=== PATIENT | female | born 1955 | race Caucasian/White ===

== ENCOUNTER 2017-09-03 16:15 | Emergency (ER) | payer OTHER ==
[~2017-09-03] VITALS: Ht 167.6 cm; Wt 90.7 kg
[~2017-09-03 16:15] MED LIST: ACET500 PO; ALBU90OI INH; ASPI325 PO; Amoxicillin500 MG PO; Armour Thyroid120 MG PO; Biotin800 MCG PO; CALCA500CH PO; Cinnamon500 MG PO; Cipro500 MG PO; FISH1000; GABA100 PO; GUAI120S1 PO; HYDACE5 PO; Hair, Skin & N1 EACH PO; IBUP800 PO; MONDOXYNE NL100 MG PO; Metamucil Plus1 EACH PO; Multiple Vitam1 EAC1 PO; NAPR500 PO; OMEP20ER PO; OXYACE5T PO; Pyridium200 MG PO; ROXICODONE5 MG PO; Sudogest60 MG PO; THYR60 PO; VITAMIN D35000 UNIT PO; Vitamin D400 UNI1 PO
[2017-09-03] MEDS ORDERED: PRED20 PO (17:38)
[2017-09-03] MEDS ORDERED: ALBU90OI INH (17:38)
[2017-09-03] MEDS ORDERED: BENZ100A PO (17:38)
[2017-09-03] MEDS ORDERED: Cheratussin AC118 ML PO (17:38)
[2017-09-03] MEDS ORDERED: SPACE CHAMBER1 EACH INH (17:38)
== END 2017-09-03 17:45 | disposition home or self-care (01) ==
LOC: ER 16:15
DX: R05 Cough (principal); R09.81 Nasal congestion; Z88.8 Allergy status to other drugs, medicaments and biological substances; Z79.899 Other long term (current) drug therapy; Z79.82 Long term (current) use of aspirin; Z79.51 Long term (current) use of inhaled steroids; Z87.891 Personal history of nicotine dependence
CPT/HCPCS: 71046; 94640; 99284

== ENCOUNTER 2018-10-30 19:40 | Emergency (ER) | payer OTHER ==
[~2018-10-30] VITALS: Ht 165.1 cm; Wt 90.7 kg
[~2018-10-30 19:40] MED LIST changes: +BENZ100A PO; +Cheratussin AC118 ML PO; +PRED20 PO; +SPACE CHAMBER1 EACH INH
[2018-10-30 20:26] LABS: Source, Urine Clean Catch
[2018-10-30 20:32] LABS: Bilirubin, Urine Neg (Neg); Blood, Urine 1+ (Neg); Glucose Qualitative, Urine Neg (Neg); Ketones, Urine Neg (Neg); Leukocyte Esterase, Urine 1+ (Neg); Nitrite, Urine Neg (Neg); Protein, Urine Neg (Neg); Specific Gravity, Urine 1.015 (1.003-1.022); Urobilinogen, Urine NORM (Normal); pH, Urine 6.5 (5.0-8.0)
[2018-10-30 20:38] LABS: Appearance, Urine Clear (Clear); Color, Urine Yellow (P-Yellow)
[2018-10-30 20:39] LABS: Amorphous Mod (0-Heavy); Bacteria Mod /hpf; Mucus Light (0-Heavy); Red Blood Cells, Urine 0-2 /hpf (0-2); Squamous Epithelial Cells Few /hpf (Few)
[2018-10-30] MEDS ORDERED: CEPH500 PO (20:53)
== END 2018-10-30 21:02 | disposition home or self-care (01) ==
LOC: ER 19:40
PROVIDERS: Emergency Medicine
DX: N39.0 Urinary tract infection, site not specified (principal); Z88.8 Allergy status to other drugs, medicaments and biological substances; Z88.1 Allergy status to other antibiotic agents; Z79.899 Other long term (current) drug therapy; Z79.52 Long term (current) use of systemic steroids; E03.9 Hypothyroidism, unspecified; Z87.891 Personal history of nicotine dependence
CPT/HCPCS: 81001; 87086; 99283

== ENCOUNTER 2019-06-15 13:29 | Observation (INO) | payer OTHER ==
[~2019-06-15] VITALS: Ht 167.6 cm; Wt 85.7 kg
[~2019-06-15 13:29] MED LIST changes: +CEPH500 PO
[2019-06-15 14:07] LABS: BASOPHILS ABSOLUTE AUTO 0.06 K/mm3 (0.00-0.23); BASOPHILS PERCENT AUTO 1 % (0-2); EOSINOPHILS ABSOLUTE AUTO 0.26 K/mm3 (0.00-0.68); EOSINOPHILS PERCENT AUTO 3 % (0-6); Hematocrit 42.8 % (33.0-51.0); Hemoglobin 14.2 g/dL (11.5-16.0); IMMATURE GRAN ABSOLUTE AUTO 0.02 K/mm3 (0.00-0.10); IMMATURE GRAN PERCENT AUTO 0 % (0-1); LYMPHOCYTES ABSOLUTE AUTO 2.31 K/mm3 (0.84-5.20); LYMPHOCYTES PERCENT AUTO 24 % (21-46); MONOCYTES ABSOLUTE AUTO 0.63 K/mm3 (0.16-1.47); MONOCYTES PERCENT AUTO 6 % (4-13); Mean Corpuscular HGB 30.9 pg (26.0-34.0); Mean Corpuscular HGB Conc 33.2 g/dL (31.5-36.5); Mean Corpuscular Volume 93 fL (80-100); Mean Platelet Volume 10.3 fL (9.1-12.4); NEUTROPHILS ABSOLUTE AUTO 6.53 K/mm3 (1.96-9.15); NEUTROPHILS PERCENT AUTO 67 % (41-73); Platelet Count 255 K/mm3 (150-400); RDW Coefficient Variation 12.3 % (11.7-14.2); RDW Standard Deviation 42.4 fL (35.1-46.3); White Blood Cell Count 9.81 K/mm3 (4.00-11.30)
[2019-06-15 14:32] LABS: Alanine Aminotransfer (ALT/SGP 39 U/L (12-78); Albumin, Blood 4.1 g/dL (3.4-5.0); Albumin/Globulin Ratio 1.1 (0.8-1.8); Alk Phos 130 U/L (50-136); Anion Gap 7 mmol/L (6-16); Aspartate Aminotrans (AST/SGOT 30 U/L (12-37); Bilirubin, Total 0.4 mg/dL (0.1-1.0); Blood Urea Nitrogen 19 mg/dL (8-24); Bun/Creatinine Ratio 25.9 (12.0-20.0); CO2, Blood 25 mmol/L (21-32); Chloride, Blood 107 mmol/L (98-108); Creatinine, Blood 0.73 mg/dL (0.40-1.00); Globulin, Blood 3.6 g/dL (2.2-4.0); Glomerular Filtration Rate >60 (60-); Glucose, Blood 101 mg/dL (70-99); Sodium, Blood 139 mmol/L (136-145); Total Protein, Blood 7.7 g/dL (6.4-8.2); Troponin I <0.015 ng/mL (0.000-0.040)
[2019-06-15 15:01] LABS: Source, Urine Clean Catch
[2019-06-15 15:07] LABS: Appearance, Urine Clear (Clear); Bilirubin, Urine Neg (Neg); Blood, Urine 1+ (Neg); Color, Urine Yellow (P-Yellow); Glucose Qualitative, Urine Neg (Neg); Ketones, Urine Neg (Neg); Leukocyte Esterase, Urine Neg (Neg); Nitrite, Urine Neg (Neg); Protein, Urine Neg (Neg); Urobilinogen, Urine NORM (Normal); pH, Urine 6.5 (5.0-8.0)
[2019-06-15 15:12] LABS: Bacteria Few /hpf; Red Blood Cells, Urine 0-2 /hpf (0-2); Squamous Epithelial Cells Rare /hpf (Few); White Blood Cells, Urine Not Seen /hpf (0-5)
[2019-06-15] MEDS ORDERED: IBUPROFEN IB200 MG PO (17:58)
[2019-06-16 02:01] LABS: BASOPHILS ABSOLUTE AUTO 0.09 K/mm3 (0.00-0.23); BASOPHILS PERCENT AUTO 1 % (0-2); EOSINOPHILS ABSOLUTE AUTO 0.35 K/mm3 (0.00-0.68); EOSINOPHILS PERCENT AUTO 4 % (0-6); Hematocrit 41.3 % (33.0-51.0); Hemoglobin 13.4 g/dL (11.5-16.0); IMMATURE GRAN ABSOLUTE AUTO 0.02 K/mm3 (0.00-0.10); IMMATURE GRAN PERCENT AUTO 0 % (0-1); LYMPHOCYTES ABSOLUTE AUTO 2.73 K/mm3 (0.84-5.20); LYMPHOCYTES PERCENT AUTO 29 % (21-46); MONOCYTES ABSOLUTE AUTO 0.64 K/mm3 (0.16-1.47); MONOCYTES PERCENT AUTO 7 % (4-13); Mean Corpuscular HGB 30.7 pg (26.0-34.0); Mean Corpuscular HGB Conc 32.4 g/dL (31.5-36.5); Mean Corpuscular Volume 95 fL (80-100); Mean Platelet Volume 10.2 fL (9.1-12.4); NEUTROPHILS ABSOLUTE AUTO 5.58 K/mm3 (1.96-9.15); NEUTROPHILS PERCENT AUTO 59 % (41-73); Platelet Count 245 K/mm3 (150-400); RDW Coefficient Variation 12.4 % (11.7-14.2); RDW Standard Deviation 43.3 fL (35.1-46.3); Red Blood Cell Count 4.37 M/mm3 (3.80-5.20); White Blood Cell Count 9.41 K/mm3 (4.00-11.30)
[2019-06-16 02:44] LABS: Anion Gap 6 mmol/L (6-16); Blood Urea Nitrogen 19 mg/dL (8-24); CHOL/HDL RATIO 4.8; CO2, Blood 27 mmol/L (21-32); Chloride, Blood 108 mmol/L (98-108); Cholesterol 194 mg/dL (50-200); Creatinine, Blood 0.83 mg/dL (0.40-1.00); Free Thyroxine 0.62 ng/dL (0.70-1.60); Glomerular Filtration Rate >60 (60-); Glucose, Blood 113 mg/dL (70-99); HDL Cholesterol 40 mg/dL (>39); Low Density Lipoprotein Chol 118 mg/dL (0-110); Potassium, Blood 4.6 mmol/L (3.5-5.5); Sodium, Blood 141 mmol/L (136-145); Triglycerides 180 mg/dL (30-160); Very Low Density Lipoprot Chol 36 mg/dL (6-32)
--- NOTE | 2019-06-16 04:45 | NUR ---
SHIFT SUMMARY PT NEW ADMIT SHORTLY BEFORE SHIFT CHANGE ON DAY SHIFT. UPON COMING ON SHIFT PT WAS REPORTING INCREASED MIDSTERNAL PAIN. PT HAD JUST FINISHED EATING A FAST FOOD SANDWICH. TELEMETRY READING SR W/ OCCASSIONAL PVC'S AT 83. TROPONIN RECHECKED AND CONTINUED TO BE NEGATIVE. NEW ORDER TO START PEPCID AND METOPROLOL THIS EVENING. BOTH STARTED. ALSO MEDICATED PT W/ 650 MG TYLENOL. SHORTLY AFTER PT REPORTED RELIEF. NEW ORDER FOR MELATONIN PER PT REQUEST EFFECTIVE. PT SLEPT WELL THROUGH MOST OF THE NIGHT. VITAL SIGNS WERE STABLE. EXPECTING PT TO DISCHARGE TODAY. WILL CONTINUE TO MONITOR AND REPORT TO DAY RN.
[2019-06-16] MEDS ORDERED: ACET325 PO (11:08)
[2019-06-16] MEDS ORDERED: THYR60 (11:08)
[2019-06-16] MEDS ORDERED: ASPI81CH PO (11:09)
[2019-06-16] MEDS ORDERED: ATOR20 PO (11:10)
[2019-06-16] MEDS ORDERED: MELATONIN5 M1 PO (11:11)
[2019-06-16] MEDS ORDERED: FAMO20 PO (11:11)
[2019-06-16] MEDS ORDERED: METO25 PO (11:29)
--- NOTE | 2019-06-16 13:12 | NUR ---
PT DISCHARGED FROM THE UNIT. TO DRIVE HOME. DISCHARGE INSTRUCTIONS REVIEWED. NO IV ACCESS. LEFT UNIT VIA WHEELCHAIR AT 1200.
== END 2019-06-16 12:03 | disposition home or self-care (01) ==
LOC: ER 13:29 → MEDS 13:30 → ENPENDDIS 06-16 10:36 → MEDS 06-16 12:03
PROVIDERS: Emergency Medicine; Physician Assistant; ADMIT Hospitalist
DX: R07.89 Other chest pain (principal); E78.5 Hyperlipidemia, unspecified; K21.9 Gastro-esophageal reflux disease without esophagitis; M19.90 Unspecified osteoarthritis, unspecified site; G47.00 Insomnia, unspecified; E03.9 Hypothyroidism, unspecified; I10 Essential (primary) hypertension; Z79.899 Other long term (current) drug therapy
CPT/HCPCS: 36415; 71046; 80048; 80053; 80061; 81001; 83880; 84439; 84443; 84484; 85025; 93005; 93010; 96372; 99285-25; A9270; A9270-GY; G0378; J1650

== ENCOUNTER 2020-01-12 22:10 | Emergency (ER) | payer OTHER ==
[~2020-01-12] VITALS: Ht 167.6 cm; Wt 88.5 kg
[~2020-01-12 22:10] MED LIST changes: +ACET325 PO; +ASPI81CH PO; +ATOR20 PO; +FAMO20 PO; +IBUPROFEN IB200 MG PO; +MELATONIN5 M1 PO; +METO25 PO; +THYR60
[2020-01-12] MEDS ORDERED: Nitrostat0.3 MG SL (22:41)
[2020-01-12 23:03] LABS: BASOPHILS ABSOLUTE AUTO 0.09 K/mm3 (0.00-0.23); BASOPHILS PERCENT AUTO 1 % (0-2); EOSINOPHILS ABSOLUTE AUTO 0.35 K/mm3 (0.00-0.68); EOSINOPHILS PERCENT AUTO 4 % (0-6); Hematocrit 40.6 % (33.0-51.0); Hemoglobin 13.1 g/dL (11.5-16.0); IMMATURE GRAN ABSOLUTE AUTO 0.01 K/mm3 (0.00-0.10); IMMATURE GRAN PERCENT AUTO 0 % (0-1); LYMPHOCYTES PERCENT AUTO 28 % (21-46); MONOCYTES ABSOLUTE AUTO 0.62 K/mm3 (0.16-1.47); MONOCYTES PERCENT AUTO 7 % (4-13); Mean Corpuscular HGB 30.5 pg (26.0-34.0); Mean Corpuscular HGB Conc 32.3 g/dL (31.5-36.5); Mean Corpuscular Volume 95 fL (80-100); Mean Platelet Volume 10.5 fL (9.1-12.4); NEUTROPHILS ABSOLUTE AUTO 5.74 K/mm3 (1.96-9.15); NEUTROPHILS PERCENT AUTO 60 % (41-73); Platelet Count 224 K/mm3 (150-400); RDW Coefficient Variation 12.8 % (11.7-14.2); RDW Standard Deviation 44.2 fL (35.1-46.3); Red Blood Cell Count 4.29 M/mm3 (3.80-5.20); White Blood Cell Count 9.51 K/mm3 (4.00-11.30)
[2020-01-12 23:17] LABS: Alanine Aminotransfer (ALT/SGP 37 U/L (12-78); Albumin, Blood 3.7 g/dL (3.4-5.0); Albumin/Globulin Ratio 1.1 (0.8-1.8); Alk Phos 106 U/L (50-136); Anion Gap 3 mmol/L (6-16); Aspartate Aminotrans (AST/SGOT 24 U/L (12-37); Bilirubin, Total 0.2 mg/dL (0.1-1.0); Blood Urea Nitrogen 28 mg/dL (8-24); Bun/Creatinine Ratio 26.7 (12.0-20.0); CO2, Blood 29 mmol/L (21-32); Calcium, Blood 9.4 mg/dL (8.5-10.1); Chloride, Blood 111 mmol/L (98-108); Creatinine, Blood 1.05 mg/dL (0.40-1.00); Globulin, Blood 3.4 g/dL (2.2-4.0); Glomerular Filtration Rate 56 (60-); Glucose, Blood 130 mg/dL (70-99); Potassium, Blood 4.1 mmol/L (3.5-5.5); Sodium, Blood 143 mmol/L (136-145); Total Protein, Blood 7.1 g/dL (6.4-8.2); Troponin I <0.015 ng/mL (0.000-0.040)
== END 2020-01-13 00:33 | disposition home or self-care (01) ==
LOC: ER 22:10
PROVIDERS: Emergency Medicine
DX: R07.9 Chest pain, unspecified (principal); R05 Cough; Z88.8 Allergy status to other drugs, medicaments and biological substances; Z88.6 Allergy status to analgesic agent; Z79.899 Other long term (current) drug therapy; Z87.891 Personal history of nicotine dependence
CPT/HCPCS: 36415; 71046; 80053; 84484; 85025; 93005; 93010; 96374; 96375; 99285-25; J2270; J2405

== ENCOUNTER 2020-02-10 06:31 | Day surgery (SDC) | payer OTHER ==
[~2020-02-10] VITALS: Ht 165.1 cm; Wt 96.0 kg
[~2020-02-10 06:31] MED LIST changes: +BACL10 PO; +BUSP5 PO; +NAPR220 PO; +Nitrostat0.3 MG SL
[2020-02-10 07:44] LABS: BASOPHILS ABSOLUTE AUTO 0.08 K/mm3 (0.00-0.23); BASOPHILS PERCENT AUTO 1 % (0-2); EOSINOPHILS ABSOLUTE AUTO 0.29 K/mm3 (0.00-0.68); EOSINOPHILS PERCENT AUTO 3 % (0-6); Hematocrit 41.9 % (33.0-51.0); Hemoglobin 13.6 g/dL (11.5-16.0); IMMATURE GRAN ABSOLUTE AUTO 0.02 K/mm3 (0.00-0.10); IMMATURE GRAN PERCENT AUTO 0 % (0-1); LYMPHOCYTES ABSOLUTE AUTO 1.93 K/mm3 (0.84-5.20); LYMPHOCYTES PERCENT AUTO 23 % (21-46); MONOCYTES ABSOLUTE AUTO 0.51 K/mm3 (0.16-1.47); MONOCYTES PERCENT AUTO 6 % (4-13); Mean Corpuscular HGB 30.4 pg (26.0-34.0); Mean Corpuscular HGB Conc 32.5 g/dL (31.5-36.5); Mean Corpuscular Volume 94 fL (80-100); Mean Platelet Volume 10.3 fL (9.1-12.4); NEUTROPHILS ABSOLUTE AUTO 5.67 K/mm3 (1.96-9.15); NEUTROPHILS PERCENT AUTO 67 % (41-73); Platelet Count 232 K/mm3 (150-400); RDW Coefficient Variation 12.6 % (11.7-14.2); RDW Standard Deviation 43.6 fL (35.1-46.3); Red Blood Cell Count 4.47 M/mm3 (3.80-5.20)
[2020-02-10 07:53] LABS: International Normalized Ratio 0.98; Prothrombin Time Results 10.5 Sec (9.7-11.5)
[2020-02-10 07:56] LABS: Anion Gap 6 mmol/L (6-16); Blood Urea Nitrogen 24 mg/dL (8-24); Bun/Creatinine Ratio 31.9 (12.0-20.0); CO2, Blood 26 mmol/L (21-32); Calcium, Blood 9.1 mg/dL (8.5-10.1); Chloride, Blood 113 mmol/L (98-108); Creatinine, Blood 0.75 mg/dL (0.40-1.00); Glomerular Filtration Rate >60 (60-); Glucose, Blood 129 mg/dL (70-99); Potassium, Blood 4.3 mmol/L (3.5-5.5); Sodium, Blood 145 mmol/L (136-145)
--- NOTE | 2020-02-10 09:40 | NUR ---
PT TO RECOVERY ROOM POST PROCEDURE. PT ALERT AND CONVERSING APPROPRIATELY, DENIES PAIN POST PROCEDURE. MONITOR SR 60'S, B/P 139/75, AFEBRILE, SPO2 95-96% RA. R RADIAL SITE NO SWELLING/HEMATOMA, TR BAND IN PLACE 9 CC AIR. PT TAKING FLUIDS WITHOUT ISSUE.
[2020-02-10] MEDS ORDERED: FURO20 PO (10:00)
--- NOTE | 2020-02-10 11:59 | NUR ---
DISCHARGE GONE OVER WITH PT, PT VERBALIZES UNDERSTANDING. R RADIAL SITE STABLE AND WITHOUT BLEEDING.
--- NOTE | 2020-02-10 12:10 | NUR ---
PT UP TO BATHROOM GETTING DRESSED. SALINE LOCK REMOVED WITH CATHETER INTACT, PRESSURE DRESSING APPLIED.
--- NOTE | 2020-02-10 12:25 | NUR ---
PT DRESSED, TR BAND REMOVED. AREA CLEANSED AND CLOTH DOT PLACED. PT TO PRIVATE VEHICLE PER W/C WITH ONE STAFF.
== END 2020-02-10 12:28 | disposition home or self-care (01) ==
LOC: MHTC 06:31
PROVIDERS: Internal Medicine Interventional Cardiology
PROC: B201YZZ Plain Radiography of Multiple Coronary Arteries using Other Contrast (ICD-10-PCS; principal; 2020-02-10)
PROC: 4A023N7 Measurement of Cardiac Sampling and Pressure, Left Heart, Percutaneous Approach (ICD-10-PCS; principal; 2020-02-10)
DX: I25.10 Atherosclerotic heart disease of native coronary artery without angina pectoris (principal); I10 Essential (primary) hypertension; Z87.891 Personal history of nicotine dependence; E03.9 Hypothyroidism, unspecified; Z79.899 Other long term (current) drug therapy; Z88.6 Allergy status to analgesic agent; Z88.8 Allergy status to other drugs, medicaments and biological substances; E78.5 Hyperlipidemia, unspecified; F41.9 Anxiety disorder, unspecified
CPT/HCPCS: 76937; 80048; 85025; 85610; 93458; 99152; 99153; C1769; C1894; J1644; J2250; J3010; J7030; J7050; Q9967

== ENCOUNTER → 2021-03-19 | Outpatient (CLI) | payer OTHER ==
[~2021-03-19] MED LIST changes: +FURO20 PO
== END | disposition home or self-care (01) ==
LOC: LAB SHORT 18:49
DX: R35.0 Frequency of micturition (principal)
CPT/HCPCS: 87086

== ENCOUNTER 2022-01-05 08:36 | Day surgery (SDC) | payer OTHER ==
[~2022-01-05] VITALS: Ht 167.6 cm; Wt 91.9 kg
--- NOTE | 2022-01-05 09:12 | NUR ---
Ambulatory in Day Surgery. History, Chart, Medications and Allergies reviewed before start of procedure. Lungs clear T/O to Auscultation. Patient confirms NPO status and agrees with scheduled surgery. Patient States Post-Procedure ride home has been arranged. LEONA WILL BE HERE AT 1034
--- NOTE | 2022-01-05 09:53 | NUR ---
01/05/22 0953 [place] HISTORY, CHART, MEDICATIONS AND ALLERGIES REVIEWED BEFORE START OF PROCEDURE. PATIENT CONFIRMS NPO STATUS AND AGREES WITH SCHEDULED PROCEDURE. 3-LEAD EKG REVIEWED WITH PHYSICIAN PRIOR TO START OF PROCEDURE. MONITOR INTACT WITH CONTINUOUS PULSE OXIMETRY,CAPNOGRAPHY, 3-LEAD EKG, INTERMITTENT BP. SUPPLEMENTAL O2 TO BE TITRATED THROUGHOUT PROCEDURE TO MAINTAIN O2 SATURATION ABOVE 90%. PATIENT DETERMINED TO BE ASA APPROPRIATE FOR PROPOFOL SEDATION PRIOR TO START OF PROCEDURE BY DR. GORMAN.
--- NOTE | 2022-01-05 11:41 | NUR ---
1135- VSS. NO C/O. Patient waiting for confirmation on date/time of Barium Enema ordered by Dr. Shea. This nurse is in contact with scheduling and waiting for care team coordinator scheduler to schedule Barium Enema. Discharge instructions reviewed with patient. Patient verbalizes understanding. Copy given to patient to take home. Patient States Post-Procedure ride home has been arranged.
== END 2022-01-05 11:40 | disposition home or self-care (01) ==
LOC: ORSCMMR 08:36
PROVIDERS: Internal Medicine Gastroenterology
PROC: 0DJD8ZZ Inspection of Lower Intestinal Tract, Via Natural or Artificial Opening Endoscopic (ICD-10-PCS; principal; 2022-01-05 09:30)
DX: R19.5 Other fecal abnormalities (principal); I10 Essential (primary) hypertension; E03.9 Hypothyroidism, unspecified; K57.30 Diverticulosis of large intestine without perforation or abscess without bleeding; E66.9 Obesity, unspecified; Z68.35 Body mass index [BMI] 35.0-35.9, adult; Z79.899 Other long term (current) drug therapy
CPT/HCPCS: J2704; J7120

== ENCOUNTER → 2022-05-26 | Outpatient (CLI) | payer OTHER | END | disposition home or self-care (01) | LOC: LAB SHORT 11:00 → LAB 11:00 | DX: N39.0 Urinary tract infection, site not specified (principal) | CPT/HCPCS: 87086 ==

== ENCOUNTER → 2023-05-27 | Outpatient (CLI) | payer OTHER | END | disposition home or self-care (01) | LOC: LAB SHORT 12:10 → LAB 12:10 | DX: N39.0 Urinary tract infection, site not specified (principal) | CPT/HCPCS: 87086 ==

== ENCOUNTER → 2023-08-02 | Outpatient (CLI) | payer OTHER | LOC: LAB 13:19 → LAB SHORT 13:19 | DX: R30.0 Dysuria (principal) | CPT/HCPCS: 87086 ==

== ENCOUNTER → 2024-02-09 | Outpatient (CLI) | payer OTHER ==
[~2024-02-09] MED LIST changes: +ALLERGY PILL PO; +DERMACINRX FOL1 EAC2 PO; +MELOXICAM5 MG PO; +METO25ER PO; +OTC SLEEP AID PO; +TIROSINT100 MC1 PO; +TRAM50 PO; -Vitamin D400 UNI1 PO
[2024-02-13 12:14] LABS: HIV 1,2 COMBO ANTIGEN/ANTIBODY Negative (Negative)
[2024-02-13 12:40] LABS: Percent Saturation 19.7 % (15.0-50.0)
[2024-02-15 00:16] LABS: ALBUMIN 4.08 g/dL (3.75-5.01); ALPHA 1 GLOBULIN 0.25 g/dL (0.19-0.46); ALPHA 2 GLOBULIN 0.67 g/dL (0.48-1.05); IMMUNOFIXATION REFLEX Not Done; TOTAL PROTEIN,SERUM 6.8 g/dL (6.3-8.2)
== END | disposition home or self-care (01) ==
LOC: LAB SHORT 18:30 → LAB 18:30
PROVIDERS: Family Medicine
DX: G62.9 Polyneuropathy, unspecified (principal); D64.9 Anemia, unspecified; Z79.899 Other long term (current) drug therapy
CPT/HCPCS: 82607; 82728; 82746; 83540; 83550; 87389

== ENCOUNTER → 2024-04-10 | Outpatient (CLI) | payer OTHER ==
[2024-04-10 17:18] LABS: BASOPHILS ABSOLUTE AUTO 0.11 K/mm3 (0.00-0.23); BASOPHILS PERCENT AUTO 1 % (0-2); EOSINOPHILS ABSOLUTE AUTO 0.25 K/mm3 (0.00-0.68); EOSINOPHILS PERCENT AUTO 3 % (0-6); Hematocrit 42.8 % (33.0-51.0); IMMATURE GRAN ABSOLUTE AUTO 0.03 K/mm3 (0.00-0.10); IMMATURE GRAN PERCENT AUTO 0 % (0-1); LYMPHOCYTES ABSOLUTE AUTO 2.05 K/mm3 (0.84-5.20); LYMPHOCYTES PERCENT AUTO 25 % (21-46); MONOCYTES ABSOLUTE AUTO 0.45 K/mm3 (0.16-1.47); MONOCYTES PERCENT AUTO 5 % (4-13); Mean Corpuscular HGB 28.9 pg (26.0-34.0); Mean Corpuscular HGB Conc 32.7 g/dL (31.5-36.5); Mean Corpuscular Volume 88 fL (80-100); Mean Platelet Volume 10.2 fL (9.1-12.4); NEUTROPHILS ABSOLUTE AUTO 5.47 K/mm3 (1.96-9.15); NEUTROPHILS PERCENT AUTO 65 % (41-73); Platelet Count 278 K/mm3 (150-400); RDW Coefficient Variation 13.8 % (11.7-14.2); RDW Standard Deviation 44.6 fL (35.1-46.3); Red Blood Cell Count 4.84 M/mm3 (3.80-5.20); White Blood Cell Count 8.36 K/mm3 (4.00-11.30)
[2024-04-10 17:24] LABS: Alanine Aminotransfer (ALT/SGP 72 U/L (12-78); Albumin, Blood 3.6 g/dL (3.4-5.0); Albumin/Globulin Ratio 0.9 (0.8-1.8); Alk Phos 150 U/L (50-136); Anion Gap 9 mmol/L (3-11); Aspartate Aminotrans (AST/SGOT 42 U/L (12-37); Bilirubin, Total 0.4 mg/dL (0.1-1.0); Blood Urea Nitrogen 17 mg/dL (8-24); Bun/Creatinine Ratio 18.9 (12.0-20.0); CHOL/HDL RATIO 5.7; CO2, Blood 28 mmol/L (21-32); Calcium, Blood 9.4 mg/dL (8.5-10.1); Chloride, Blood 107 mmol/L (98-108); Cholesterol 224 mg/dL (50-200); Globulin, Blood 3.9 g/dL (2.2-4.0); Glomerular Filtration Rate 71 (60-); Glucose, Blood 154 mg/dL (70-99); HDL Cholesterol 39 mg/dL (>39); LDL/HDL RATIO 3.7; Low Density Lipoprotein Chol 144 mg/dL (0-110); Potassium, Blood 4.5 mmol/L (3.5-5.5); Sodium, Blood 139 mmol/L (136-145); Total Protein, Blood 7.5 g/dL (6.4-8.2); Triglycerides 205 mg/dL (30-160); Very Low Density Lipoprot Chol 41 mg/dL (6-32)
[2024-04-12 07:17] LABS: ANTI-NUCLEAR AB ANA,IGG ELISA None Detected (None Detected)
[2024-04-12 11:22] LABS: HEPATITIS C AB CIA INTERP Negative (Negative); HEPATITIS C ANTIBODY CIA INDEX 0.17 IV
[2024-04-12 11:55] LABS: HIV 1,2 COMBO ANTIGEN/ANTIBODY Negative (Negative)
== END | disposition home or self-care (01) ==
LOC: LAB 16:07 → LAB SHORT 16:07
PROVIDERS: Family Medicine
DX: G62.9 Polyneuropathy, unspecified (principal); Z79.899 Other long term (current) drug therapy
CPT/HCPCS: 80053; 80061; 82306; 83036; 84443; 85025; 85651; 86038; 86803; 87389

== ENCOUNTER → 2025-01-22 | Outpatient (CLI) | payer OTHER ==
[2025-01-22 16:56] LABS: BASOPHILS ABSOLUTE AUTO 0.11 K/mm3 (0.00-0.23); BASOPHILS PERCENT AUTO 1 % (0-2); EOSINOPHILS ABSOLUTE AUTO 0.23 K/mm3 (0.00-0.68); EOSINOPHILS PERCENT AUTO 3 % (0-6); Hematocrit 45.3 % (33.0-51.0); Hemoglobin 15.1 g/dL (11.5-16.0); IMMATURE GRAN ABSOLUTE AUTO 0.02 K/mm3 (0.00-0.10); IMMATURE GRAN PERCENT AUTO 0 % (0-1); LYMPHOCYTES ABSOLUTE AUTO 1.42 K/mm3 (0.84-5.20); LYMPHOCYTES PERCENT AUTO 17 % (21-46); MONOCYTES ABSOLUTE AUTO 0.47 K/mm3 (0.16-1.47); MONOCYTES PERCENT AUTO 6 % (4-13); Mean Corpuscular HGB Conc 33.3 g/dL (31.5-36.5); Mean Corpuscular Volume 94 fL (80-100); NEUTROPHILS ABSOLUTE AUTO 6.03 K/mm3 (1.96-9.15); NEUTROPHILS PERCENT AUTO 73 % (41-73); NRBC ABSOLUTE 0.00 K/mm3 (0.00-0.02); NRBC Auto 0.0 /100 WBC (0.0-0.2); Platelet Count 173 K/mm3 (150-400); RDW Coefficient Variation 12.1 % (11.7-14.2); RDW Standard Deviation 42.1 fL (35.1-46.3)
[2025-01-22 20:49] LABS: Creatinine, Urine Random 138.0 mg/dL (27.00-270.00); Microalb/Creat Ratio UR, Rand 11.739 mg/g (0.000-30.000); Microalbumin, Random Urine 16.2 mg/L (0.000-20.000)
[2025-01-22 21:38] LABS: Alanine Aminotransfer (ALT/SGP 135 U/L (12-78); Albumin, Blood 3.7 g/dL (3.4-5.0); Albumin/Globulin Ratio 1.0 (0.8-1.8); Anion Gap 9 mmol/L (3-11); Aspartate Aminotrans (AST/SGOT 81 U/L (12-37); Bilirubin, Total 0.4 mg/dL (0.1-1.0); Blood Urea Nitrogen 22 mg/dL (8-24); CHOL/HDL RATIO 4.6; CO2, Blood 25 mmol/L (21-32); Calcium, Blood 8.8 mg/dL (8.5-10.1); Chloride, Blood 106 mmol/L (98-108); Cholesterol 218 mg/dL (50-200); Creatinine, Blood 0.90 mg/dL (0.40-1.00); Globulin, Blood 3.7 g/dL (2.2-4.0); Glucose, Blood 151 mg/dL (70-99); HDL Cholesterol 47 mg/dL (>39); LDL/HDL RATIO 2.9; Low Density Lipoprotein Chol 135 mg/dL (0-110); Potassium, Blood 4.5 mmol/L (3.5-5.5); Sodium, Blood 135 mmol/L (136-145); Thyroid Stimulating Hormone 4.700 uIU/mL (0.360-4.800); Total Protein, Blood 7.4 g/dL (6.4-8.2); Triglycerides 181 mg/dL (30-160); Very Low Density Lipoprot Chol 36 mg/dL (6-32)
== END ==
LOC: LAB 15:04 → LAB SHORT 15:04
PROVIDERS: Family Medicine
DX: E11.9 Type 2 diabetes mellitus without complications (principal); Z79.899 Other long term (current) drug therapy
CPT/HCPCS: 80053; 80061; 82043; 82306; 82570; 83036; 84443; 85025